=== PATIENT | female | born 1995 | race Two or more races ===

== ENCOUNTER 2020-05-22 13:43 | Day surgery (SDC) | payer OTHER | END 2020-05-23 06:04 | disposition home or self-care (01) | LOC: U 13:43 → CIR.AMB 13:43 | PROVIDERS: ATTEND Obstetrics & Gynecology Obstetrics | DX: Z30.2 Encounter for sterilization (principal); Z20.828 Contact with and (suspected) exposure to other viral communicable diseases ==